=== PATIENT | male | born 1960 | race Caucasian/White ===

== ENCOUNTER 2017-01-29 12:08 | Emergency (ER) | payer BC, OTHER ==
[~2017-01-29] VITALS: Ht 177.8 cm; Wt 105.0 kg
[2017-01-29 12:15] VITALS: BP 133/88; PULSE 101; RESP 16; TEMP 98.1; O2SAT 99
--- NOTE | 2017-01-29 12:38 | PD ---
HPI Chief Complaint: General Weakness Time Seen by Provider: 12:26 Travel History International Travel<30 days: No Contact w/Intl Traveler<30days: No Traveled to known affect area: No History of Present Illness HPI This 56-year-old male is complaining of feeling lightheaded. He had a colonoscopy on Sunday he had multiple polyps removed. He did well since the procedure. This morning he started having some blood per rectum. His fairly persistent for a while. It seems to be slowing down. He started to feel little bit lightheaded when he stood up. She has no history of anemia. He does have a history of hypertension. He was nauseated yesterday PFSH Past Medical History Chemotherapy: No Social History Tobacco Use: No Allergies-Medications (Allergen,Severity, Reaction): Coded Allergies: Sulfa (Sulfonamide Antibiotics) (Verified Allergy, Unknown, 01/29/17) Reported Meds & Prescriptions Reported Meds & Active Scripts Active Review of Systems General / Constitutional: No: Fever, Chills Eyes: No: Diploplia, Blurred Vision HENT: Positive: Lightheadedness, No: Headaches, Vertigo Cardiovascular: No: Chest Pain or Discomfort, Palpitations Respiratory: No: Cough, Shortness of Breath Gastrointestinal: Positive: Nausea, Hematochezia Genitourinary: No: Urgency, Frequency Musculoskeletal: No: Myalgias, Arthralgias Skin: No Rash, No Itching Neurologic: Positive: Weakness Physical Exam Narrative GENERAL: Well-developed male SKIN: Focused skin assessment warm/dry. HEAD: Atraumatic. Normocephalic. EYES: Pupils equal and round. No scleral icterus. No injection or drainage. ENT: No nasal bleeding or discharge. Mucous membranes pink and moist. NECK: Trachea midline. No JVD. CARDIOVASCULAR: Regular rate and rhythm. No murmur appreciated. RESPIRATORY: No accessory muscle use. Clear to auscultation. Breath sounds equal bilaterally. GASTROINTESTINAL: Abdomen soft, non-tender, nondistended. Hepatic and splenic margins not palpable. MUSCULOSKELETAL: No obvious deformities. No clubbing. No cyanosis. No edema. NEUROLOGICAL: Awake and alert. No obvious cranial nerve deficits. Motor grossly within normal limits. Normal speech. PSYCHIATRIC: Appropriate mood and affect; insight and judgment normal. Data Data Last Documented VS Vital Signs Date Time Temp Pulse Resp B/P (MAP) Pulse Ox O2 Delivery O2 Flow Rate FiO2 01/29/17 13:45 72 17 128/81 (97) 85 17 122/84 (97) 89 17 129/79 (96) 01/29/17 12:50 Room Air 01/29/17 12:15 98.1 99 Orders Orders Complete Blood Count With Diff (01/29/17 12:32) Basic Metabolic Panel (Bmp) (01/29/17 12:32) Prothrombin Time / Inr (Pt) (01/29/17 12:32) Act Partial Throm Time (Ptt) (01/29/17 12:32) Orthostatic Vital Signs (01/29/17 12:32) Type And Screen (01/29/17 12:32) Sodium Chlor 0.9% 1000 Ml Inj (Ns 1000 M (01/29/17 12:45) Labs Laboratory Tests Test 01/29/17 12:50 White Blood Count 11.6 TH/MM3 Red Blood Count 3.69 MIL/MM3 Hemoglobin 11.8 GM/DL Hematocrit 34.9 % Mean Corpuscular Volume 94.6 FL Mean Corpuscular Hemoglobin 32.0 PG Mean Corpuscular Hemoglobin Concent 33.8 % Red Cell Distribution Width 12.0 % Platelet Count 237 TH/MM3 Mean Platelet Volume 8.8 FL Neutrophils (%) (Auto) 66.7 % Lymphocytes (%) (Auto) 19.0 % Monocytes (%) (Auto) 9.8 % Eosinophils (%) (Auto) 3.6 % Basophils (%) (Auto) 0.9 % Neutrophils # (Auto) 7.8 TH/MM3 Lymphocytes # (Auto) 2.2 TH/MM3 Monocytes # (Auto) 1.1 TH/MM3 Eosinophils # (Auto) 0.4 TH/MM3 Basophils # (Auto) 0.1 TH/MM3 CBC Comment DIFF FINAL Differential Comment Prothrombin Time 11.3 SEC Prothromb Time International Ratio 1.0 RATIO Activated Partial Thromboplast Time 22.7 SEC Blood Urea Nitrogen 11 MG/DL Creatinine 0.70 MG/DL Random Glucose 170 MG/DL Calcium Level 8.2 MG/DL Sodium Level 137 MEQ/L Potassium Level 4.3 MEQ/L Chloride Level 103 MEQ/L Carbon Dioxide Level 26.5 MEQ/L Anion Gap 8 MEQ/L Estimat Glomerular Filtration Rate 116 ML/MIN MDM Medical Decision Making Medical Screen Exam Complete: Yes Emergency Medical Condition: Yes Medical Record Reviewed: Yes Differential Diagnosis Differential includes bleeding from polyp excision, anemia Narrative Course Hemoglobin now is 11.6. Patient has been given some fluids. His orthostatic vital signs are negative. He is stable for discharge. I have cautioned him that if the bleeding continues he may need to come back for reevaluation. Diagnosis Primary Impression: bleeding secondary to polyp excision Additional Instructions: Return if weakness, dizziness, increasing bleeding Disposition: 01 DISCHARGE HOME Condition: Stable Stephen Ferris MD Jan 29, 2017 12:38
[2017-01-29] MEDS ORDERED: SODIUM CHLOR 0.9% 1000 ML INJ 1,000 ML IV ONE (12:45)
[2017-01-29 12:57] LABS: AUTOMATED NEUTROPHIL # 7.8 TH/MM3 (1.8-7.7); BASOPHIL # 0.1 TH/MM3 (0-0.2); BASOPHIL % 0.9 % (0.0-2.0); EOSINOPHIL # 0.4 TH/MM3 (0-0.4); EOSINOPHIL % 3.6 % (0.0-4.0); HEMATOCRIT 34.9 % (39.0-51.0); HEMO FLAGS DIFF FINAL; LYMPHOCYTE # 2.2 TH/MM3 (1.0-4.8); MEAN CELL VOLUME 94.6 FL (80.0-100.0); MEAN CORPUSCULAR HGB CONC 33.8 % (32.0-36.0); MONO % 9.8 % (0.0-8.0); NEUT % 66.7 % (16.0-70.0); PLATELET COUNT 237 TH/MM3 (150-450); RED BLOOD COUNT 3.69 MIL/MM3 (4.50-5.90); WHITE BLOOD COUNT 11.6 TH/MM3 (4.0-11.0)
[2017-01-29 13:13] LABS: APTT (PATIENT) 22.7 SEC (24.3-30.1); BICARBONATE 26.5 MEQ/L (21.0-32.0); PROTHROMBIN TIME - PATIENT 11.3 SEC (9.8-11.6)
[2017-01-29 13:27] LABS: POTASSIUM 4.3 MEQ/L (3.5-5.1)
[2017-01-29 13:45] VITALS: BP_SYST 122; BP_SYST 128; BP_SYST 129; BP_DIAS 79; BP_DIAS 81; BP_DIAS 84; PULSE 72; RESP 17; O2SAT 99
[2017-01-29 14:56] VITALS: BP 135/75
[2017-01-29] MEDS ORDERED: ATEN50TA7 PO (20:43)
[2017-01-29] MEDS ORDERED: LOSA100T PO (20:43)
[2017-01-29] MEDS ORDERED: METF500T PO (20:43)
[2017-01-29] MEDS ORDERED: AMLO5TAB2 PO (20:44)
== END 2017-01-29 14:58 | disposition home or self-care (01) ==
LOC: PHED 12:08
DX: K91.840 Postprocedural hemorrhage of a digestive system organ or structure following a digestive system procedure (principal); K62.5 Hemorrhage of anus and rectum; R42 Dizziness and giddiness; R11.0 Nausea; I10 Essential (primary) hypertension; Z98.890 Other specified postprocedural states
CPT/HCPCS: 80048; 85025; 85610; 85730; 86850; 86900; 86901; 96360; 99284; J7030

== ENCOUNTER 2017-01-29 20:30 | Inpatient (IN) | payer BC ==
[2017-01-29] VITALS (10 sets, daily range): BP systolic 105–155; BP diastolic 63–95; PULSE 90–109; RESP 15–20; TEMP 97.1–97.7; O2SAT 96–100
[~2017-01-29] VITALS: Ht 177.8 cm; Wt 108.6 kg
[2017-01-29] MEDS ORDERED: ONDANSETRON HCL 4 MG/2 ML VIAL ONE (20:37)
[2017-01-29] MEDS ORDERED: ATEN50TA7 PO (20:43)
[2017-01-29] MEDS ORDERED: LOSA100T PO (20:43)
[2017-01-29] MEDS ORDERED: METF500T PO (20:43)
[2017-01-29] MEDS ORDERED: AMLO5TAB2 PO (20:44)
[2017-01-29] MEDS ORDERED: SODIUM CHLOR 0.9% 1000 ML INJ 1,000 ML IV SCH (20:46)
[2017-01-29] MEDS ORDERED: PANTOPRAZOLE INJ 80 MG in SODIUM CHLORIDE 0.9% INJ 35 ML IV ONE (20:46)
--- NOTE | 2017-01-29 20:59 | PD ---
HPI Chief Complaint: Bleeding Time Seen by Provider: 20:45 Travel History International Travel<30 days: No Contact w/Intl Traveler<30days: No Traveled to known affect area: No History of Present Illness HPI The patient is a 56 year old male who presents to the [facility] emergency department with a history of GI bleeding that began earlier today. He reports that he has had bright red blood per rectum that began this morning was occurring approximately every 30 minutes. He reports that he then in the morning began to have lightheaded sensation. The patient reports that his recent history is complicated by having his first colonoscopy on Sunday by . At that time he had multiple polyps removed. The patient reports that he went to the [facility] emergency department earlier today after being told by the GI doctor's nurse to go there. The patient at that time was given IV fluids and initial blood work revealed a hemoglobin of 11.8. He was offered admission for observation and at that time preferred to go home. The patient reports that since going home every time he sits up he gets lightheaded. The patient has passed out and has an abrasion next to the left eye on the left moravian. He denies having any chest pain, chest pressure, or shortness of breath. The patient on arrival is noted to be pale. The patient was brought in by ambulance services and was noted to be tachycardic, however he was not hypotensive. His initial blood pressure on their arrival was 120/81, pulse 131. The patient had IV access obtained prior to arrival was given a liter of normal saline IV fluids. The patient has developed nausea and had one episode of vomiting on arrival to this facility. No hematemesis. He reports that his bloody stools have decreased to approximately once every 2 hours. On review of systems otherwise, the patient denies having any known recent fevers, cough or congestion, neck pain, urinary symptoms, or focal neurologic symptoms. The patient reports having some generalized abdominal discomfort down in bilateral lower quadrants of the abdomen. He reports having low back pain, however he reports that this is chronic. [facility] Past Medical History Narrative Medical The patient's past medical history is significant for having colon polyps status post resection on Sunday of this past week, history of prostate cancer , history of hypertension, diabetes mellitus. Asthma: Yes Cancer: Yes (prostate) Chemotherapy: No Diabetes: Yes Patient Takes Glucophage: Yes Diminished Hearing: No Hypertension: Yes Past Surgical History Narrative Surgical The patient's past surgical history is significant for prostatectomy Genitourinary Surgery: Yes (prostectomy ) Other Surgery: Yes (colonoscopy, 17 polyps removed on Sun) Social History Alcohol Use: Yes (daily) Tobacco Use: No Substance Use: No Allergies-Medications (Allergen,Severity, Reaction): Coded Allergies: Sulfa (Sulfonamide Antibiotics) (Verified Allergy, Unknown, 01/29/17) Reported Meds & Prescriptions Reported Meds & Active Scripts Active Reported Amlodipine (Amlodipine Besylate) 5 Mg Tab 5 Mg PO DAILY Metformin (Metformin HCl) 500 Mg Tab 500 Mg PO BIDPC Losartan (Losartan Potassium) 100 Mg Tab 100 Mg PO DAILY Atenolol-Chlorthalidone 50-25 Mg Tab 1 Tab PO DAILY Review of Systems Except as stated in HPI: all other systems reviewed are Neg General / Constitutional: No: Fever Eyes: No: Visual changes HENT: Positive: Lightheadedness, No: Headaches Cardiovascular: No: Chest Pain or Discomfort, Dyspnea on exertion Respiratory: No: Shortness of Breath Gastrointestinal: Positive: Nausea, Vomiting, Diarrhea, Abdominal Pain, Hematochezia, Changes in Bowel Habits, No: Hematemesis, Indigestion, Loss of Appetite Genitourinary: No: Dysuria Musculoskeletal: No: Pain Skin: No Rash Neurologic: Positive: Weakness (generalized weakness), Dizziness, Syncope, No: Focal Abnormalities, Change in Mentation, Slurred Speech, Sensory Disturbance Psychiatric: No: Depression Endocrine: No: Polydipsia Hematologic/Lymphatic: No: Easy Bruising Physical Exam Narrative General: The patient is a well-developed well-nourished male, pale appearing on arrival, diaphoretic. Head and Neck exam: Head is normocephalic atraumatic. Eyes: EOMI, pupils are equal round and reactive to light. Nose: Midline septum with pink mucous membranes Mouth: Dentition unremarkable. Moist mucus membranes. Posterior oropharynx is not erythematous. No tonsillar hypertrophy. Uvula midline. Airway patent. Neck: No palpable lymphadenopathy. No nuchal rigidity. No thyromegaly. Cardiovascular: Sinus tachycardia in the low 100s without murmurs, gallops, or rubs. No pulse deficit to the extremities on simultaneous auscultation and palpation of his radial artery. Lungs: Clear to auscultation bilaterally. No wheezes, rhonchi, or rales. Abdomen: Soft, with discomfort on deep palpation of bilateral lower quadrants of the abdomen, no other tenderness on palpation of the other quadrants. No guarding, rebound, or rigidity. Normal bowel sounds are audible. No tenderness on palpation of McBurney's point. Negative Carroll's sign. Extremities: No clubbing, cyanosis, or edema. 2+ pulses in all 4 extremities. No calf tenderness on palpation. Back: No costovertebral angle tenderness to palpation. Neurologic Exam: Grossly nonfocal. Skin Exam: No rash noted. Intact skin that is diaphoretic, warm to touch. Skin is noted to be pale. Data Data Last Documented VS Vital Signs Date Time Temp Pulse Resp B/P (MAP) Pulse Ox O2 Delivery O2 Flow Rate FiO2 01/29/17 21:33 98 Nasal Cannula 2.00 01/29/17 21:30 96 18 139/75 (96) Orders Orders Ondansetron Inj (Zofran Inj) (01/29/17 20:37) Complete Blood Count With Diff (01/29/17 20:46) Comprehensive Metabolic Panel (01/29/17 20:46) Lipase (01/29/17 20:46) Prothrombin Time / Inr (Pt) (01/29/17 20:46) Urinalysis - C+S If Indicated (01/29/17 20:46) Red Blood Cells (Rbc) (01/29/17 20:46) Blood Product Administration (01/29/17 20:46) Ecg Monitoring (01/29/17 20:46) Iv Access Insert/Monitor (01/29/17 20:46) Oximetry (01/29/17 20:46) Ondansetron Inj (Zofran Inj) (01/29/17 21:00) Sodium Chlor 0.9% 1000 Ml Inj (Ns 1000 M (01/29/17 20:46) Sodium Chloride 0.9% Flush (Ns Flush) (01/29/17 21:00) Sodium Chloride 0.9... W/Pantoprazole In (01/29/17 20:46) Sodium Chloride 0.9... W/Pantoprazole In (01/29/17 20:46) Gi Bleeding Scan (01/29/17 ) Type And Screen (01/29/17 20:40) Electrocardiogram (01/29/17 20:40) Admit Order (Ed Use Only) (01/29/17 21:45) Consult Gastroenterology (01/29/17 ) Labs Laboratory Tests Test 01/29/17 20:40 White Blood Count 12.9 TH/MM3 Red Blood Count 2.33 MIL/MM3 Hemoglobin 7.8 GM/DL Hematocrit 22.8 % Mean Corpuscular Volume 97.9 FL Mean Corpuscular Hemoglobin 33.2 PG Mean Corpuscular Hemoglobin Concent 34.0 % Red Cell Distribution Width 12.8 % Platelet Count 206 TH/MM3 Mean Platelet Volume 9.8 FL Neutrophils (%) (Auto) 79.4 % Lymphocytes (%) (Auto) 12.2 % Monocytes (%) (Auto) 7.9 % Eosinophils (%) (Auto) 0.1 % Basophils (%) (Auto) 0.4 % Neutrophils # (Auto) 10.2 TH/MM3 Lymphocytes # (Auto) 1.6 TH/MM3 Monocytes # (Auto) 1.0 TH/MM3 Eosinophils # (Auto) 0.0 TH/MM3 Basophils # (Auto) 0.0 TH/MM3 CBC Comment DIFF FINAL Differential Comment Prothrombin Time 11.4 SEC Prothromb Time International Ratio 1.1 RATIO Blood Urea Nitrogen 13 MG/DL Creatinine 0.88 MG/DL Random Glucose 237 MG/DL Total Protein 5.1 GM/DL Albumin 2.6 GM/DL Calcium Level 7.0 MG/DL Alkaline Phosphatase 22 U/L Aspartate Amino Transf (AST/SGOT) 9 U/L Alanine Aminotransferase (ALT/SGPT) 20 U/L Total Bilirubin 0.2 MG/DL Sodium Level 139 MEQ/L Potassium Level 3.8 MEQ/L Chloride Level 107 MEQ/L Carbon Dioxide Level 22.3 MEQ/L Anion Gap 10 MEQ/L Estimat Glomerular Filtration Rate 89 ML/MIN Protein Corrected Calcium 8.1 MG/DL Lipase 58 U/L MDM Medical Decision Making Medical Screen Exam Complete: Yes Emergency Medical Condition: Yes Medical Record Reviewed: Yes Interpretation(s) Last Impressions GI Bleed Scan Nuclear Medicine 01/29/17 0000 Signed Impressions: Service Date/Time: Sunday, January 29, 2017 22:49 - CONCLUSION: Evidence of active GI bleeding in the distal colon. Gabino Peter MD Differential Diagnosis Symptomatic anemia from GI bleeding, versus vasovagal syncope, versus orthostasis Narrative Course During the course of the patients emergency department visit, the patients history, examination, and differential diagnosis were reviewed with the patient. The patient was placed on a multiple resaw operator with oximetry and frequent blood pressure monitoring. The patient had IV access obtained and blood work sent for analysis. The patient will have an ECG done on arrival. The patient' s ECG reveals a sinus tachycardia rate of 101, no acute ST segment elevation, QRS duration is 77 ms, QTC 424 ms. the patient was typed and screened for blood administration. 4 units of packed red blood cells were immediately placed on hold for the patient. A call was immediately placed out to the GI specialist that performed the colonoscopy, . I spoke to who is covering for the other physician. He recommended a bleeding scan at the patient continued to have rectal bleeding, possible intervention through IR if necessary. He agreed that GI would see the patient in consultation in the morning. The patient was initially provided normal saline IV fluids, Protonix 80 mg IV, Protonix 80 mg IV per hour. The patients laboratory studies were reviewed and remarkable for a white count 12.9, hemoglobin 7.8, platelets 206 with 79.4 neutrophils. TSH Red blood cells were ordered to be administered immediately. CMP is remarkable for glucose of 237, calcium 7. Calcium gluconate 1 g IV was administered. AST 9, alkaline phosphatase 22, total protein 5.1, albumin 2.6, lipase 58, INR 1.1, PT 11.4 The patient's case is discussed with the gas cutting machine operator, Dr. Ramírez who did agree to admit the patient to the intensive care unit. The patients results were discussed with the patient, including the plan of care. I explained that further testing and/ or monitoring is indicated based on the patients history, examination, and/ or laboratory findings. Therefore, I recommended admission for additional evaluation. The patient expressed understanding and was agreeable with this plan. The patient was admitted to the hospital in critical condition and sent to a bed under the care of the gas cutting machine operator service. Critical Care Narrative Aggregate critical care time was 41 minutes. Time to perform other separately billable procedures was not included in the critical care time. My time did not include minutes spent treating any other patients simultaneously or on activities that did not directly contribute to the patient's treatment. The services I provided to this patient were to treat and/or prevent clinically significant deterioration that could result in: Cardiovascular collapse related to hemorrhagic shock, versus fluid overload related to resuscitation, versus respiratory failure I provided critical care services requiring my management, as noted below: Chart data review, documentation time, medication orders and management, vital sign assessments/reviewing monitor data, ordering and reviewing lab tests, ordering and interpreting/reviewing x-rays and diagnostic studies, care of the patient and discussion of the patient with the admitting physicians. Physician Communication Physician Communication The patient's case including history, pertinent physical examination findings, and laboratory studies were discussed with Dr. Wakefield at 21:15. He recommended that the patient undergo a bleeding scan if he continues to have bright red blood per rectum. He agreed with the plan for the patient to be admitted to the intensive care unit for close monitoring and receive blood. He will see the patient in consultation in the morning. The patient's case including history, pertinent physical examination findings, and laboratory studies were discussed with Dr. Ramírez. It was agreed that the patient would be admitted to the gas cutting machine operator service. Diagnosis Primary Impression: GI bleed Qualified Codes: K92.2 - Gastrointestinal hemorrhage, unspecified Additional Impressions: Symptomatic anemia Hemorrhagic shock Admitting Information Admitting Physician Requests: Admit Roberta Tucker MD Jan 29, 2017 20:59
[2017-01-29] MEDS ORDERED: SODIUM CHLORIDE 0.9% FLUSH 10 ML FLUSH IVF PRN (21:00)
[2017-01-29] MEDS ORDERED: ONDANSETRON HCL 4 MG/2 ML VIAL IVP ONE (21:00)
[2017-01-29] MEDS: PANTOPRAZOLE INJ 80 MG in SODIUM CHLORIDE 0.9% INJ 100 ML IV SCH (21:22)
[2017-01-29 21:23] LABS: AUTOMATED NEUTROPHIL # 10.2 TH/MM3 (1.8-7.7); BASOPHIL % 0.4 % (0.0-2.0); EOSINOPHIL % 0.1 % (0.0-4.0); HEMATOCRIT 22.8 % (39.0-51.0); HEMO FLAGS DIFF FINAL; LYMPH % 12.2 % (9.0-44.0); LYMPHOCYTE # 1.6 TH/MM3 (1.0-4.8); MEAN CELL VOLUME 97.9 FL (80.0-100.0); MEAN CORPUSCULAR HEMOGLOBIN 33.2 PG (27.0-34.0); MONO % 7.9 % (0.0-8.0); NEUT % 79.4 % (16.0-70.0); PLATELET COUNT 206 TH/MM3 (150-450); RED BLOOD COUNT 2.33 MIL/MM3 (4.50-5.90); RED CELL DISTRIBUTION WIDTH 12.8 % (11.6-17.2); WHITE BLOOD COUNT 12.9 TH/MM3 (4.0-11.0)
[2017-01-29 21:50] LABS: BICARBONATE 22.3 MEQ/L (21.0-32.0); CALCIUM-PROTEIN CORRECTED 8.1 MG/DL (8.5-10.1); POTASSIUM 3.8 MEQ/L (3.5-5.1); TOTAL BILIRUBIN ADULT 0.2 MG/DL (0.2-1.0)
[2017-01-29 21:52] LABS: INTERNATIONAL NORMALIZED RATIO 1.1 RATIO; PROTHROMBIN TIME - PATIENT 11.4 SEC (9.8-11.6)
[2017-01-29] MEDS ORDERED: SODIUM CHLORIDE 0.9% FLUSH 10 ML FLUSH IV FLUSH PRN (22:45)
[2017-01-29] MEDS ORDERED: ACETAMINOPHEN 325 MG TAB PO PRN (22:45)
[2017-01-29] MEDS ORDERED: MAGNESIUM HYDROXIDE SUSP 30 ML CUP PO PRN (22:45)
[2017-01-29] MEDS ORDERED: CHLORHEXIDINE GLUCONATE 2 % 1 PACK (2 CLOTHS) TOP PRN (22:45)
[2017-01-29] MEDS ORDERED: RESP: ALBUTEROL 2.5 MG/IPRATROPIUM 0.5 MG NEB (PRN) INH (22:45)
[2017-01-29] MEDS ORDERED: ZOLPIDEM TARTRATE 5 MG TAB PO PRN (22:45)
[2017-01-29] MEDS ORDERED: MORPHINE SULFATE 4 MG/ML INJ IV PUSH PRN (22:45)
[2017-01-29] MEDS ORDERED: DEXTROSE 50% IN WATER 50 ML VIAL(D50) IV PUSH PRN (22:45)
[2017-01-29] MEDS ORDERED: SENNOSIDES 8.6 MG TAB PO PRN (22:45)
[2017-01-29] MEDS ORDERED: BISACODYL 10 MG SUPP RECTAL PRN (22:45)
[2017-01-29] MEDS ORDERED: LACTULOSE SYRUP 20 GM/30 ML CUP PO PRN (22:45)
[2017-01-29] MEDS ORDERED: MISCELLANEOUS NURSING INFORMATION XX SCH (22:45)
[2017-01-29] MEDS ORDERED: GLUCAGON 1 MG/ML VIAL OTHER PRN (22:45)
[2017-01-29] MEDS: PANTOPRAZOLE SODIUM 40 MG VIAL IV PUSH SCH (23:00)
[2017-01-29] MEDS ORDERED: CALCIUM GLUCONATE INJ 1 GM in SODIUM CHLORIDE 0.9% INJ 100 ML IV ONE (23:00)
[2017-01-29] MEDS: SODIUM CHLOR 0.9% 1000 ML INJ 1,000 ML IV SCH (23:08)
--- NOTE | 2017-01-29 23:16 | HHI.HP ---
HPI Service Critical Care Medicine Primary Care Physician Osito Fung MD Admission Diagnosis GI Bleed Diagnosis: Travel History International Travel<30 Days: No Contact w/Intl Traveler <30 Da: No Traveled to Known Affected Are: No History of Present Illness 56 year old male presents to the [facility] emergency department with a history of GI bleeding that began earlier today. He has had bright red blood per rectum that began this morning was occurring approximately every 30 minutes. He also began to have lightheaded sensation. He has had his first colonoscopy on Sunday by and he had multiple polyps removed. He went to the [facility] emergency department earlier today after being told by the GI doctor's nurse to do. He was given IV fluids and initial blood work revealed a hemoglobin of 11.8. He was offered admission for observation and at that time preferred to go home. Since then every time he sits up he gets lightheaded. He also has passed out and has an abrasion next to the left eye on the left denominational. He denies having any chest pain, chest pressure, or shortness of breath. The patient was brought in by ambulance services and in the emergency department was noted to be tachycardic, however he was not hypotensive. His initial blood pressure on their arrival was 120/81, pulse 131. The patient had IV access obtained prior to arrival was given a liter of normal saline IV fluids. He reports that his bloody stools have decreased to approximately once every 2 hours. The GI services were notified by ED attending with recommendations of nuclear medicine bleeding scan which shows active bleeding from the distal colon. IR physician economic development coordinator was contacted, case discussed and scheduled for IR intervention at 7:30 AM . Review of Systems Constitutional: COMPLAINS OF: Diaphoretic episodes, Fatigue, Dizziness, DENIES : Fever, Weight gain, Weight loss, Chills, Change in appetite, Night Sweats Eyes: COMPLAINS OF: Blurred vision, DENIES: Diplopia, Eye inflammation, Eye pain, Vision loss, Photosensitivity, Double Vision Ears, nose, mouth, throat: DENIES: Tinnitus, Hearing loss, Vertigo, Nasal discharge, Oral lesions, Throat pain, Hoarseness, Ear Pain, Running Nose, Epistaxis, Sinus Pain, Toothache, Odynophagia Respiratory: DENIES: Apneas, Cough, Snoring, Wheezing, Hemoptysis, Sputum production, Shortness of breath Cardiovascular: DENIES: Chest pain, Palpitations, Syncope, Dyspnea on Exertion , PND, Lower Extremity Edema, Orthopnea, Claudication Gastrointestinal: COMPLAINS OF: Bloody stools, Nausea, DENIES: Abdominal pain, Black stools, Constipation, Diarrhea, Vomiting, Difficulty Swallowing, Anorexia Genitourinary: DENIES: Sexual dysfunction, Urinary frequency, Urinary incontinence, Urgency, Hematuria, Dysuria, Nocturia, Penile Discharge, Testicular Pain, Testicular Swelling Musculoskeletal: DENIES: Joint pain, Muscle aches, Stiffness, Joint Swelling, Back pain, Neck pain Integumentary: DENIES: Abnormal pigmentation, Nail changes, Pruritus, Rash Hematologic/lymphatic: DENIES: Bruising, Lymphadenopathy Immunologic/allergic: DENIES: Eczema, Urticaria Neurologic: COMPLAINS OF: Poor Balance, DENIES: Abnormal gait, Headache, Localized weakness, Paresthesias, Seizures, Speech Problems, Tremor Psychiatric: DENIES: Anxiety, Confusion, Mood changes, Depression, Hallucinations, Agitation, Suicidal Ideation, Homicidal Ideation, Delusions Past Family Social History Allergies: Coded Allergies: Sulfa (Sulfonamide Antibiotics) (Verified Allergy, Unknown, 01/29/17) Past Medical History Asthma: Yes Cancer: Yes (prostate) Diabetes: Yes Hypertension: Yes Past Surgical History Genitourinary Surgery: Yes (prostectomy ) Other Surgery: Yes (colonoscopy, 17 polyps removed on Sun) Reported Medications Reported Meds & Active Scripts Active Reported Amlodipine (Amlodipine Besylate) 5 Mg Tab 5 Mg PO DAILY Metformin (Metformin HCl) 500 Mg Tab 500 Mg PO BIDPC Losartan (Losartan Potassium) 100 Mg Tab 100 Mg PO DAILY Atenolol-Chlorthalidone 50-25 Mg Tab 1 Tab PO DAILY Active Ordered Medications Current Medications Medications (Trade) Dose Ordered Sig/Ira Route PRN Reason Start Time Stop Time Status Last Admin Dose Admin Sodium Chloride 1,000 ml @ 125 mls/hr Q8H IV 01/29/17 20:46 01/30/17 04:45 01/29/17 21:21 Sodium Chloride (NS Flush) 2 ml UNSCH PRN IVF FLUSH AFTER USING IV ACCESS 01/29/17 21:00 Pantoprazole Sodium 80 mg/ Sodium Chloride 100 ml @ 10 mls/hr Q10H IV 01/29/17 20:46 01/29/17 21:22 Sodium Chloride 1,000 ml @ 84 mls/hr [id number] IV 01/29/17 22:33 01/29/17 23:08 Sodium Chloride (NS Flush) 2 ml UNSCH PRN IV FLUSH FLUSH AFTER USING IV ACCESS 01/29/17 22:45 Sodium Chloride (NS Flush) 2 ml BID IV FLUSH 01/30/17 09:00 Acetaminophen (Tylenol) 650 mg Q6H PRN PO PAIN 1-5 AND/OR FEVER >101F 01/29/17 22:45 Morphine Sulfate (Morphine Inj) 2 mg Q2H PRN IV PUSH PAIN SCALE 6 TO 10 01/29/17 22:45 Pantoprazole Sodium (Protonix Inj) 40 mg Q12H IV PUSH 01/29/17 23:00 Ondansetron HCl (Zofran Inj) 4 mg Q6H PRN IV PUSH NAUSEA OR VOMITING 01/29/17 22:45 Zolpidem Tartrate (Ambien) 5 mg HS PRN PO INSOMNIA 01/29/17 22:45 Albuterol/ Ipratropium (Duoneb Neb) 1 ampule Q2HR NEB PRN INH WHEEZING 01/29/17 22:45 Miscellaneous Information 1 Q361D XX 01/29/17 22:45 Chlorhexidine Gluconate (Chlorhexidine 2% Cloth) 3 pack Taper DAILY@04 TOP 01/30/17 04:00 01/26/18 03:59 Chlorhexidine Gluconate (Chlorhexidine 2% Cloth) 3 pack UNSCH PRN TOP HYGIENIC CARE 01/29/17 22:45 Senna/Docusate Sodium (Georgiana-Colace) 1 tab BID PO 01/30/17 09:00 Magnesium Hydroxide (Milk Of Magnesia Liq) 30 ml Q12H PRN PO Mild constipation 01/29/17 22:45 Sennosides (Senokot) 17.2 mg Q12H PRN PO Moderate constipation 01/29/17 22:45 Bisacodyl (Dulcolax Supp) 10 mg DAILY PRN RECTAL SEVERE CONSITIPATION 01/29/17 22:45 Lactulose (Lactulose Liq) 30 ml DAILY PRN PO SEVERE CONSITIPATION 01/29/17 22:45 Dextrose (D50w (Vial) Inj) 50 ml UNSCH PRN IV PUSH HYPOGLYCEMIA-SEE COMMENTS 01/29/17 22:45 Glucagon (Glucagon Inj) 1 mg UNSCH PRN OTHER HYPOGLYCEMIA-SEE COMMENTS 01/29/17 22:45 Insulin Aspart (NovoLOG SUPPLEMENTAL SCALE) 1 ACHS SLIDING SCALE SQ 01/30/17 08:00 Family History No family history of early coronary artery disease Social History Alcohol Use: Yes (daily) Tobacco Use: No Substance Use: No Physical Exam Vital Signs Vital Signs Date Time Temp Pulse Resp B/P (MAP) Pulse Ox O2 Delivery O2 Flow Rate FiO2 01/29/17 23:09 98 18 147/78 (101) 98 Nasal Cannula 2.00 01/29/17 23:00 97.2 93 15 143/82 99 01/29/17 22:54 97.7 96 16 105/63 97 01/29/17 22:40 97.1 109 16 117/74 98 01/29/17 21:33 98 Nasal Cannula 2.00 01/29/17 21:30 96 18 139/75 (96) 96 Room Air 01/29/17 21:00 102 19 139/74 (95) 100 Nasal Cannula 2.00 01/29/17 20:36 108 155/95 (115) 01/29/17 20:35 108 20 146/95 (112) 100 Nasal Cannula 2.00 Physical Exam GENERAL: Well-nourished, well-developed patient. SKIN: Warm and dry. HEAD: Normocephalic. EYES: No scleral icterus. No injection or drainage. NECK: Supple, trachea midline. No JVD or lymphadenopathy. CARDIOVASCULAR: Regular rate and rhythm without murmurs, gallops, or rubs. RESPIRATORY: Breath sounds equal bilaterally. No accessory muscle use. GASTROINTESTINAL: Abdomen soft, non-tender, nondistended. MUSCULOSKELETAL: No cyanosis, or edema. BACK: Nontender without obvious deformity. NEURO EXAM: GCS: M 6 V5 E4 Mental Status: The patient is alert and oriented to person, place, and time with normal speech. Cranial Nerves: Visual acuity intact bilaterally. Visual key normal in all quadrants. Pupils are round, reactive to light. Extraocular movements are intact without ptosis. Hearing is normal bilaterally. Voice is normal. Tongue protrudes midline and moves symmetrically. Reflexes: Biceps, patellar, and Achilles are 2/4 bilaterally. No clonus. Laboratory Laboratory Tests Test 01/29/17 20:40 White Blood Count 12.9 Red Blood Count 2.33 Hemoglobin 7.8 Hematocrit 22.8 Mean Corpuscular Volume 97.9 Mean Corpuscular Hemoglobin 33.2 Mean Corpuscular Hemoglobin Concent 34.0 Red Cell Distribution Width 12.8 Platelet Count 206 Mean Platelet Volume 9.8 Neutrophils (%) (Auto) 79.4 Lymphocytes (%) (Auto) 12.2 Monocytes (%) (Auto) 7.9 Eosinophils (%) (Auto) 0.1 Basophils (%) (Auto) 0.4 Neutrophils # (Auto) 10.2 Lymphocytes # (Auto) 1.6 Monocytes # (Auto) 1.0 Eosinophils # (Auto) 0.0 Basophils # (Auto) 0.0 CBC Comment DIFF FINAL Differential Comment Prothrombin Time 11.4 Prothromb Time International Ratio 1.1 Blood Urea Nitrogen 13 Creatinine 0.88 Random Glucose 237 Total Protein 5.1 Albumin 2.6 Calcium Level 7.0 Alkaline Phosphatase 22 Aspartate Amino Transf (AST/SGOT) 9 Alanine Aminotransferase (ALT/SGPT) 20 Total Bilirubin 0.2 Sodium Level 139 Potassium Level 3.8 Chloride Level 107 Carbon Dioxide Level 22.3 Anion Gap 10 Estimat Glomerular Filtration Rate 89 Protein Corrected Calcium 8.1 Lipase 58 Result Diagram: 01/29/17203901/29/172039 Caprini VTE Risk Assessment Caprini VTE Risk Assessment: Mod/High Risk (score >= 2) Caprini Risk Assessment Model Point Value = 1 Point Value = 2 Point Value = 3 Point Value = 5 Age 41-60 Minor surgery BMI > 25 kg/m2 Swollen legs Varicose veins or History of unexplained or recurrent spontaneous Oral contraceptives or hormone replacement Sepsis (< 1 month) Serious lung disease, including pneumonia (< 1 month) Abnormal pulmonary function Acute myocardial infarction Congestive heart failure (< 1 month) History of inflammatory bowel disease Medical patient at bed rest Age 61-74 Arthroscopic surgery Major open surgery (> 45 min) Laparoscopic surgery (> 45 min) Malignancy Confined to bed (> 72 hours) Immobilizing plaster cast Central venous access Age >= 75 History of VTE Family history of VTE Factor V Leiden Prothrombin [id number] Lupus anticoagulant Anticardiolipin antibodies Elevated serum homocysteine Heparin-induced thrombocytopenia Other congenital or acquired thrombophilia Stroke (< 1 month) Elective arthroplasty Hip, pelvis, or leg fracture Acute spinal cord injury (< 1 month) Prophylaxis Regimen Total Risk Factor Score Risk Level Prophylaxis Regimen 0-1 Low Early ambulation 2 Moderate Order ONE of the following: *Sequential Compression Device (SCD) *Heparin 5000 units SQ BID 3-4 Higher Order ONE of the following medications: *Heparin 5000 units SQ TID *Enoxaparin/Lovenox 40 mg SQ daily (WT < 150 kg, CrCl > 30 mL/min) *Enoxaparin/Lovenox 30 mg SQ daily (WT < 150 kg, CrCl > 10-29 mL/min) *Enoxaparin/Lovenox 30 mg SQ BID (WT < 150 kg, CrCl > 30 mL/min) AND/OR *Sequential Compression Device (SCD) 5 or more Highest Order ONE of the following medications: *Heparin 5000 units SQ TID (Preferred with Epidurals) *Enoxaparin/Lovenox 40 mg SQ daily (WT < 150 kg, CrCl > 30 mL/min) *Enoxaparin/Lovenox 30 mg SQ daily (WT < 150 kg, CrCl > 10-29 mL/min) *Enoxaparin/Lovenox 30 mg SQ BID (WT < 150 kg, CrCl > 30 mL/min) AND *Sequential Compression Device (SCD) Assessment and Plan Assessment and Plan GI bleed - Active bleeding per nuclear medicine scan from distal: - IV Protonix - IR consultation - Gastroenterology consultation - Platelets above 200 - PT/INR within normal limits Anemia - Due to above - Transfuse to keep hemoglobin above 8 History of asthma - No exacerbation - DuoNeb's when necessary DVT GI prophylaxis - Teds SCDs - No pharmacological DVT prophylaxis due to active GI bleed - Protonix IV twice a day Critical Care: The total critical care time was 35 minutes. Time to perform other separately billable procedures was not included in the critical care time. Fahad Ramírez MD Jan 29, 2017 11:16 pm
[2017-01-30] VITALS (18 sets, daily range): BP systolic 111–155; BP diastolic 64–113; PULSE 72–140; RESP 14–24; TEMP 97–100.3; O2SAT 93–100
--- NOTE | 2017-01-30 01:45 | RADRPT ---
EXAM DATE/TIME: 01/29/2017 22:49 [facility] COMPARISON: No previous studies available for comparison. INDICATIONS : Blood in stool. DOSE: 20.2 mCi Tc99m Ultratag labeled red blood cells IV IMAGIN hrs MEDICAL HISTORY : Diabetes mellitus type 2. Hypertension. Carcinoma, prostate. SURGICAL HISTORY : Prostatectomy. ENCOUNTER: Initial ACUITY: 1 day PAIN SCALE: 2/10 LOCATION: Abdomen. TECHNIQUE: Following the modified in vitro labeling of autologous red cells, dynamic continuous images were acqu ired for the specified interval. FINDINGS: BIODISTRIBUTION: There is a very good labeling of red cells without significant uptake in the gastric wall. There is good delineation of the blood pool of the spleen and abdominal vessels. BLEEDING: Active GI bleeding is present in the distal colon. CONCLUSION: Evidence of active GI bleeding in the distal colon. Gabino Peter MD on January 30, 2017 at 1:41 Board Certified Radiologist. This report was verified electronically.
[2017-01-30 01:58] LABS: HEMATOCRIT 26.4 % (39.0-51.0); REVIEW FLAG FINAL
[2017-01-30] MEDS: ONDANSETRON HCL 4 MG/2 ML VIAL IV PUSH PRN ×2 (03:02→14:48)
[2017-01-30] MEDS: CHLORHEXIDINE GLUCONATE 2 % 1 PACK (2 CLOTHS) TOP SCH ×2 (04:00→21:07)
[2017-01-30 05:35] LABS: HEMATOCRIT 30.9 % (39.0-51.0); REVIEW FLAG FINAL
[2017-01-30 06:43] LABS: BICARBONATE 23.4 MEQ/L (21.0-32.0); CALCIUM-PROTEIN CORRECTED 7.8 MG/DL (8.5-10.1); MAGNESIUM 1.5 MG/DL (1.5-2.5)
[2017-01-30] MEDS: PANTOPRAZOLE INJ 80 MG in SODIUM CHLORIDE 0.9% INJ 100 ML IV SCH (06:46)
[2017-01-30 06:47] LABS: POTASSIUM 4.5 MEQ/L (3.5-5.1)
[2017-01-30] MEDS: INSULIN ASPART SUPPLEMENTAL SCALE SQ SCH ×4 (08:00→20:43)
[2017-01-30] MEDS ORDERED: HEPARIN SODIUM - IV 10,000 UNITS/10 ML VIAL ONE (08:15)
[2017-01-30] MEDS ORDERED: MIDAZOLAM HCL 2 MG/2 ML VIAL ONE (08:15)
[2017-01-30] MEDS ORDERED: VERAPAMIL HCL 5 MG/2 ML VIAL ONE (08:15)
[2017-01-30] MEDS: SODIUM CHLORIDE 0.9% FLUSH 10 ML FLUSH IV FLUSH SCH ×2 (08:50→20:44)
[2017-01-30] MEDS: DOCUSATE SODIUM 50 MG/SENNA 8.6 MG TAB PO SCH ×2 (08:50→20:43)
[2017-01-30] MEDS ORDERED: IOHEXOL 350 MG/ML 50 ML BTL (for RAD DIAG) OTHER ONE (10:20)
--- NOTE | 2017-01-30 10:33 | HHI.CCPN ---
Subjective Remarks/Hospital Course 56 year old male presents to the [facility] emergency department with a history of GI bleeding that began earlier today. He has had bright red blood per rectum that began this morning was occurring approximately every 30 minutes. He also began to have lightheaded sensation. He has had his first colonoscopy on Sunday by and he had multiple polyps removed. He went to the [place] emergency department earlier today after being told by the GI doctor's nurse to do. He was given IV fluids and initial blood work revealed a hemoglobin of 11.8. He was offered admission for observation and at that time preferred to go home. Since then every time he sits up he gets lightheaded. He also has passed out and has an abrasion next to the left eye on the left yarsanism. He denies having any chest pain, chest pressure, or shortness of breath. The patient was brought in by ambulance services and in the emergency department was noted to be tachycardic, however he was not hypotensive. His initial blood pressure on their arrival was 120/81, pulse 131. The patient had IV access obtained prior to arrival was given a liter of normal saline IV fluids. He reports that his bloody stools have decreased to approximately once every 2 hours. The GI services were notified by ED attending with recommendations of nuclear medicine bleeding scan which shows active bleeding from the distal colon. IR physician incident response coordinator was contacted, case discussed and scheduled for IR intervention at 7:30 AM . SUBJ 01/30: Patient was seen after abdominal angiography, official report is pending apparently they did not find a source of bleeding. Rectal bag in place with dark blood. Patient remains tachycardic at 130s. Systolic blood pressures in 120s. Repeat hemoglobin is pending at this time. GI planning on sigmoidoscopy afternoon or tomorrow a.m. Objective Vital Signs Date Time Temp Pulse Resp B/P (MAP) Pulse Ox O2 Delivery O2 Flow Rate FiO2 01/30/17 08:00 140 24 141/100 (114) 100 01/30/17 05:05 97.1 01/30/17 00:20 Nasal Cannula 2.00 Intake and Output 01/30/17 01/30/17 01/31/17 08:00 16:00 00:00 Intake Total 1767 ml 0 ml Balance 1767 ml 0 ml Result Diagram: 01/30/17 0524 01/30/17 0535 Objective Remarks GENERAL: Well-nourished, well-developed patient. Lying in bed anxious SKIN: Warm and dry. HEAD: Normocephalic. EYES: No scleral icterus. No injection or drainage. NECK: Supple, trachea midline. No JVD or lymphadenopathy. CARDIOVASCULAR: Regular rate and rhythm without murmurs, gallops, or rubs. RESPIRATORY: Breath sounds equal bilaterally. No accessory muscle use. GASTROINTESTINAL: Abdomen soft, non-tender, nondistended. Rectal bag dark blood MUSCULOSKELETAL: No cyanosis, or edema. BACK: Nontender without obvious deformity. NEURO EXAM: AOX 3. Normal motor strength. Sensation preserved Urinary Catheter: Yes Assessment to: Continue Vascular Central Line Catheter: Yes Assessment to: Continue A/P Assessment and Plan GI bleed - Active bleeding per nuclear medicine scan from distal colon - Abdominal angiogram today failed to identify bleeding source - GI following; plan for colonoscopy - IV Protonix - Platelets above 200, PT/INR within normal limits - Patient continues to remain tachycardic - Check hemoglobin now and transfuse as needed - We'll give 500 mL normal saline bolus now - Patient takes atenolol chlorthalidone at home. Resume if Hb stable as patient may be tachycardic from beta isaac withdrawal Anemia - Due to GIB - Transfuse to keep hemoglobin above 8 History of asthma - No exacerbation - DuoNeb's when necessary DVT GI prophylaxis - Teds SCDs - No pharmacological DVT prophylaxis due to active GI bleed - Protonix IV twice a day Critical Care: The total critical care time was 35 minutes. Time to perform other separately billable procedures was not included in the critical care time. Manoj Tobin MD Jan 30, 2017 10:33
[2017-01-30] MEDS: PANTOPRAZOLE SODIUM 40 MG VIAL IV PUSH SCH ×2 (10:46→23:41)
--- NOTE | 2017-01-30 10:47 | MB ---
cc: SHEMAR REDDY M.D., LOUIS M. MD MOUSSLY, SOUHIEL DATE OF CONSULTATION: 01/30/2017 DATE OF : 1960 HISTORY OF PRESENT ILLNESS The patient is a 56-year-old gentleman I was asked to see for further evaluation and management of hematochezia. He underwent colonoscopy about 7 days ago and multiple polyps were removed. Yesterday he presented to the [facility] with hematochezia but felt well enough to go home. He was re-admitted to [facility] last evening with significant hematochezia, lightheadedness and dizziness and was admitted. The bleeding continued. A bleeding scan overnight revealed active bleeding of the rectum or sigmoid region. Angiography (I was in the angio suite with the patient and the interventional radiologist.) revealed no active bleeding during this study. This suggests, at least for the time-being, that the bleeding has ceased. The patient feels cold and is shivering. He has had no pain. PAST MEDICAL HISTORY 1. Asthma. 2. Prostate cancer. 3. Diabetes. 4. Hypertension. PAST SURGICAL HISTORY 1. Prostatectomy. 2. Colonoscopy with 17 polyps having been removed last week. MEDICATIONS Medications on admission: 1. Amlodipine 5 mg daily. 2. Metformin 500 mg b.i.d. 3. Losartan 100 mg daily. 4. Atenolol/hydrochlorothiazide 50/25 mg daily. ALLERGIES SULFA. SOCIAL HISTORY Tobacco use: None. Alcohol use: Daily. REVIEW OF SYSTEMS No problems until this bleeding. He has had no recent headaches or difficulty breathing. No chest pains. No history of seizures or strokes. No dysphagia or odynophagia. No unexplained weight loss. No history of liver disease or pancreatic disease or thyroid disease. PHYSICAL EXAMINATION VITAL SIGNS: Weight 109 kg. Temperature 97.1, pulse 140, respiratory rate 24, blood pressure 141/100. Saturation 100% on room air. GENERAL: He is alert. He is oriented x3. HEENT: He is pale. He is anicteric. He has chattering teeth. LUNGS: Clear to auscultation. HEART: Tachycardia with no appreciable murmur or gallop at this time. ABDOMEN: Good bowel sounds. The abdomen is soft and nontender. No masses or hepatosplenomegaly noted. EXTREMITIES: No pedal edema. LABORATORY STUDIES Laboratory studies on admission yesterday: White count 12.9, hemoglobin 7.8 at 8:40 last evening, MCV 79.9, platelets 206. This morning by 5:24 after 4 units of packed red blood cells his hemoglobin was up to 10.6. Sodium this morning is 140, potassium 4.5, BUN 17, creatinine 0.83. Liver enzymes were all normal. Albumin low at 2.4. INR 1.1. RADIOLOGIC STUDIES As mentioned positive bleeding scan in the rectum or sigmoid colon with a normal angiogram just a few minutes ago. IMPRESSION Post-polypectomy bleed. PLAN/RECOMMENDATIONS At this point will follow his blood count, make sure he stays stable hemodynamically. Will consider sigmoidoscopy today or tomorrow to evaluate for bleeding site to see if it can be injected or cauterized or banded. We reviewed the procedure including potential risks of medication reaction, bleeding, perforation and a small chance of missing a lesion. Hemoglobin is to be followed serially. MD JUSTA Jackson/NADIYA /10:10 AM /10:27 AM
[2017-01-30] MEDS ORDERED: SODIUM CHLORID 0.9% 500 ML INJ 500 ML IV ONE (11:00)
[2017-01-30 11:27] LABS: AUTOMATED NEUTROPHIL # 12.8 TH/MM3 (1.8-7.7); BASOPHIL % 0.1 % (0.0-2.0); HEMATOCRIT 24.3 % (39.0-51.0); HEMO FLAGS DIFF FINAL; LYMPH % 10.1 % (9.0-44.0); LYMPHOCYTE # 1.6 TH/MM3 (1.0-4.8); MEAN CELL VOLUME 84.8 FL (80.0-100.0); MEAN CORPUSCULAR HEMOGLOBIN 28.8 PG (27.0-34.0); MONO % 7.7 % (0.0-8.0); NEUT % 82.1 % (16.0-70.0); PLATELET COUNT 139 TH/MM3 (150-450); RED BLOOD COUNT 2.87 MIL/MM3 (4.50-5.90); RED CELL DISTRIBUTION WIDTH 20.7 % (11.6-17.2); WHITE BLOOD COUNT 15.5 TH/MM3 (4.0-11.0)
[2017-01-30] MEDS: SODIUM CHLOR 0.9% 1000 ML INJ 1,000 ML IV SCH ×2 (11:33→20:44)
[2017-01-30] MEDS: ATENOLOL/CHLORTHALIDONE 50/25 TAB PO SCH (13:27)
--- NOTE | 2017-01-30 14:02 | RADRPT ---
EXAM DATE/TIME: 01/30/2017 08:12 [facility] COMPARISON: No previous studies available for comparison. INDICATIONS : History of recent polypectomy with severe lower GI hemorrhage and bleeding scan demonstrating distal colonic source. MEDICAL HISTORY : HTN, Diabetes, Colon polyps, Prostate cancer SURGICAL HISTORY : Prostatectomy, Colonoscopy ENCOUNTER: Subsequent ACUITY: 1 day PAIN SCORE: 0/10 FLUORO TIME: 20.3 minutes IMAGE SERIES: 7 ACCESS SITE: Left Radial artery SEDATION TIME: 60 minutes CONTRAST: 1.) 180 cc Omnipaque (iohexol) 350 MEDICATION(S): 1.) 0.5 mg midazolam (Versed) IV 2.) 25 mcg fentanyl (Sublimaze) IV DEVICE(S): 1.) Left radial artery [id number] Radial compression device PROCEDURE : 1. Ultrasound-guided puncture of the radial artery. 2. Conscious sedation with continuous EKG and Oximetry monitoring. 3. Selective catheter placement in the SMA was selected angiography 4. Selective catheter placement in June with selective angiography The risks, benefits and alternatives to the procedure were explained and verbal and written consent w as obtained. The site was prepped in sterile fashion. Full sterile technique was used, including cap, mask, steri le gloves and gown and a large sterile sheet. Hand hygiene and 2% chlorhexidine and/or betadine/alco hol prep was utilized per protocol for cutaneous antisepsis. Sterile gel and sterile probe cover wer e utilized for ultrasound guidance. The skin and subcutaneous tissues were infiltrated with local an esthetic solution. A Barbeau test was performed prior to preparing the patient for the procedure which demonstrated adeq uate collateral circulation. With ultrasound and fluoroscopic guidance the prescribed radial was punc tured and a 4 Croatian Slim vascular sheath was placed. A 4 Croatian portacatheter was than advanced into the abdominal aorta and eventually used to select the superior mesenteric artery. Angiography was pe rformed in multiple obliquities. Catheter was then repositioned into the KYUNG. This was challenging du e to very sharp origin angle and small caliber. Angiography was then performed in multiple obliquitie s. Catheter was then removed. Sheath was removed and hemostasis obtained with radial compression device. Conscious sedation was performed with the prescribed dosages and duration as above in the presence of an independent trained radiology nurse to assist in the monitoring of the patient. EKG and oximetry remained stable throughout the procedure. FINDINGS: There standard SMA anatomy. No evidence for contrast extravasation or vascular malformation or other focal abnormality. KYUNG is small in caliber but otherwise patent with no evidence for contrast extrava sation or vascular malformation or other focal abnormality. CONCLUSION: 1. No evidence for active hemorrhage, vascular malformation, or focal abnormality in the SMA or KYUNG t erritory. Wiliam Patino MD on January 30, 2017 at 13:54 Board Certified Radiologist. This report was verified electronically.
--- NOTE | 2017-01-30 15:25 | EKG ---
Date Performed: 01/29/2017 Time Performed: 20:40:46 PTAGE: 56 years EKG: SINUS TACHYCARDIA MODERATE ST DEPRESSION When compared to previous tracing, patient has dev eloped an Increase in the nonspecific ST segment changes. Clinical coooolation advised. ABNORMAL ECG PREVIOUS TRACING : 08/27/2006 DOCTOR: Tatum Rene Interpretating Date/Time 01/30/2017 15:25:01
[2017-01-30] MEDS ORDERED: ICU - MAGNESIUM SULFATE 2 GM/NS 100 ML IV PRN ×2 (18:30)
[2017-01-30] MEDS ORDERED: ICU - SODIUM PHOSPHATE 30 MMOL/NS 250 ML IV PRN ×2 (18:30)
[2017-01-30] MEDS ORDERED: ICU - POTASSIUM PHOSPHATE 30 MMOL/NS 250 ML IV PRN ×2 (18:30)
[2017-01-30] MEDS ORDERED: POTASSIUM CHLORIDE 25 MEQ EFFERVESCENT TAB PO PRN (18:30)
[2017-01-30] MEDS ORDERED: ICU - CALL ORDERING PHYSICIAN PRN (18:30)
[2017-01-30] MEDS ORDERED: ICU - POTASSIUM PHOSPHATE MONOBASIC 500 MG TAB PO PRN (18:30)
[2017-01-30] MEDS ORDERED: ICU - POTASSIUM CHLORIDE/AQUEOUS SOLN 20 MEQ/100 ML IVPB IV PRN (18:30)
[2017-01-30] MEDS ORDERED: ICU - POTASSIUM CHLORIDE/AQUEOUS SOLN 40 MEQ/100 ML IVPB IV PRN (18:30)
[2017-01-30] MEDS ORDERED: ICU - MAGNESIUM OXIDE 400 MG TAB PO PRN (18:30)
[2017-01-30] MEDS ORDERED: ICU - D/C ICU ELECTROLYTE ORDERS PRN (18:30)
[2017-01-30] MEDS ORDERED: ICU - MAGNESIUM SULFATE 4 GM/NS 100 ML IV PRN ×2 (18:30)
[2017-01-30 21:19] LABS: HEMATOCRIT 24.2 % (39.0-51.0); REVIEW FLAG FINAL
[2017-01-30 22:10] LABS: AUTOMATED NEUTROPHIL # 15.3 TH/MM3 (1.8-7.7); BASOPHIL % 0.2 % (0.0-2.0); LYMPH % 10.8 % (9.0-44.0); LYMPHOCYTE # 2.1 TH/MM3 (1.0-4.8); MEAN CELL VOLUME 86.6 FL (80.0-100.0); MEAN CORPUSCULAR HEMOGLOBIN 29.4 PG (27.0-34.0); PLATELET COUNT 137 TH/MM3 (150-450); RED BLOOD COUNT 2.77 MIL/MM3 (4.50-5.90); WHITE BLOOD COUNT 19.8 TH/MM3 (4.0-11.0)
[2017-01-30 22:13] LABS: HEMO FLAGS AUTO DIFF
[2017-01-30 23:17] LABS: BANDS 4 % (0-6); METAMYELOCYTES 1 % (0-1); POLYS (SEG NEUTROPHILS) 76 % (16-70); WBC DIFF SAMPLE 100
[2017-01-30 23:19] LABS: PLATELET ESTIMATE SMEAR LOW (NORMAL); PLATELET MORPHOLOGY NORMAL (NORMAL); SCAN/DIFF FINAL DIFF MANUAL
[2017-01-31] VITALS (15 sets, daily range): BP systolic 99–146; BP diastolic 56–76; PULSE 68–84; RESP 14–32; TEMP 97.9–99; O2SAT 95–100
[2017-01-31 08:17] LABS: AUTOMATED NEUTROPHIL # 12.5 TH/MM3 (1.8-7.7); BASOPHIL # 0.1 TH/MM3 (0-0.2); BASOPHIL % 0.5 % (0.0-2.0); EOSINOPHIL % 0.3 % (0.0-4.0); HEMATOCRIT 21.6 % (39.0-51.0); HEMO FLAGS DIFF FINAL; LYMPH % 16.1 % (9.0-44.0); LYMPHOCYTE # 2.8 TH/MM3 (1.0-4.8); MEAN CELL VOLUME 88.8 FL (80.0-100.0); MEAN CORPUSCULAR HEMOGLOBIN 30.3 PG (27.0-34.0); MEAN CORPUSCULAR HGB CONC 34.1 % (32.0-36.0); MONO % 10.7 % (0.0-8.0); NEUT % 72.4 % (16.0-70.0); PLATELET COUNT 136 TH/MM3 (150-450); RED BLOOD COUNT 2.43 MIL/MM3 (4.50-5.90); RED CELL DISTRIBUTION WIDTH 19.4 % (11.6-17.2); WHITE BLOOD COUNT 17.2 TH/MM3 (4.0-11.0)
[2017-01-31] MEDS: SODIUM CHLOR 0.9% 1000 ML INJ 1,000 ML IV SCH ×2 (09:00→18:00)
[2017-01-31] MEDS: INSULIN ASPART SUPPLEMENTAL SCALE SQ SCH ×4 (09:00→21:00)
[2017-01-31] MEDS: SODIUM CHLORIDE 0.9% FLUSH 10 ML FLUSH IV FLUSH SCH ×2 (09:00→20:07)
[2017-01-31] MEDS: ATENOLOL/CHLORTHALIDONE 50/25 TAB PO SCH (09:00)
[2017-01-31] MEDS: DOCUSATE SODIUM 50 MG/SENNA 8.6 MG TAB PO SCH ×2 (09:00→20:06)
--- NOTE | 2017-01-31 10:43 | HHI.CCPN ---
Subjective Remarks/Hospital Course 56 year old male presents to the [facility] emergency department with a history of GI bleeding that began earlier today. He has had bright red blood per rectum that began this morning was occurring approximately every 30 minutes. He also began to have lightheaded sensation. He has had his first colonoscopy on Sunday by and he had multiple polyps removed. He went to the [place] emergency department earlier today after being told by the GI doctor's nurse to do. He was given IV fluids and initial blood work revealed a hemoglobin of 11.8. He was offered admission for observation and at that time preferred to go home. Since then every time he sits up he gets lightheaded. He also has passed out and has an abrasion next to the left eye on the left samaritan. He denies having any chest pain, chest pressure, or shortness of breath. The patient was brought in by ambulance services and in the emergency department was noted to be tachycardic, however he was not hypotensive. His initial blood pressure on their arrival was 120/81, pulse 131. The patient had IV access obtained prior to arrival was given a liter of normal saline IV fluids. He reports that his bloody stools have decreased to approximately once every 2 hours. The GI services were notified by ED attending with recommendations of nuclear medicine bleeding scan which shows active bleeding from the distal colon. IR physician weight control lecturer was contacted, case discussed and scheduled for IR intervention at 7:30 AM . SUBJ 01/30: Patient was seen after abdominal angiography, official report is pending apparently they did not find a source of bleeding. Rectal bag in place with dark blood. Patient remains tachycardic at 130s. Systolic blood pressures in 120s. Repeat hemoglobin is pending at this time. GI planning on sigmoidoscopy afternoon or tomorrow a.m. 01/31: Clinically more stable less tachycardic. Normotensive. Hemoglobin 7.3 today additional 1 unit of blood ordered. I Personally spoke to GI-we'll evaluate today, to decide upon sigmoidoscopy Objective Vital Signs Date Time Temp Pulse Resp B/P (MAP) Pulse Ox O2 Delivery O2 Flow Rate FiO2 01/31/17 07:00 77 01/31/17 04:00 98.4 21 100/61 (74) 95 01/30/17 00:20 Nasal Cannula 2.00 Intake and Output 01/31/17 01/31/17 02/01/17 08:00 16:00 00:00 Intake Total 0 ml Output Total 750 ml Balance -750 ml Result Diagram: 01/31/17 0739 01/30/17 0535 Objective Remarks GENERAL: Well-nourished, well-developed patient. Lying in bed no acute discomfort SKIN: Warm and dry. HEAD: Normocephalic. EYES: No scleral icterus. No injection or drainage. NECK: Supple, trachea midline. No JVD or lymphadenopathy. CARDIOVASCULAR: Regular rate and rhythm without murmurs, gallops, or rubs. RESPIRATORY: Breath sounds equal bilaterally. No accessory muscle use. GASTROINTESTINAL: Abdomen soft, non-tender, nondistended. Rectal bag with dark old appearing blood MUSCULOSKELETAL: No cyanosis, or edema. BACK: Nontender without obvious deformity. NEURO: AOX 3. Normal motor strength. Sensation preserved A/P Assessment and Plan GI bleed - Active bleeding per nuclear medicine scan from distal colon - Abdominal angiogram 01/30 failed to identify bleeding source - GI following; possible sigmoidoscopy today. D/W GI - PRBC 1U ordered for Hb 7.3. Continue IV Protonix. Platelets above 200, PT/INR within normal limits - Patient takes atenolol chlorthalidone at home. Resumed due to tachycardia Anemia - Secondary to GIB - Transfuse to keep hemoglobin above 8 History of asthma - No exacerbation - DuoNeb's when necessary DVT GI prophylaxis - Teds SCDs - No pharmacological DVT prophylaxis due to active GI bleed - Protonix IV twice a day Critical Care: Level 3. Continue ICU care until Hb stable Manoj Tobin MD Jan 31, 2017 10:43
--- NOTE | 2017-01-31 11:05 | HHI.GIFU ---
GI Follow-up Note Consult Follow-up Subjective: Patient laying in bed comfortably. feeling better. old blood noted in rectal bag but hgb dropped to 7.3. No CP/SOB/ABD pain Objective: PHYSICAL EXAMINATION: Vitals signs stable No fever CHEST: Chest is clear to auscultation and percussion. CARDIAC: Regular rate and rhythm with no murmur gallop or rubs. ABDOMEN: Soft, nondistended, nontender; no hepatosplenomegaly; bowel sounds are present in all four quadrants. EXTREMITIES: No clubbing, cyanosis, or edema. SKIN: no jaundice. MERCHANDISE EXECUTIVE; alert and oriented times three. Available Data (labs, X- Rays, Procedues) : 7.3 Hgb ASSESSMENT/PLAN: 1. lower GI bleeding-old blood noted but hgb dropped 2. anemia 3. recent polypectomy PLAN: 1. sigmoidoscopy today (or tomorrow depending on schedule). all risks d/w with pt including risk of bleeding, infection, perforation and It was a pleasure seeing Abilio Pineda. Thank you for this consult. Entered by: Jg Campos MD Jan 31, 2017 11:05
[2017-01-31] MEDS: PANTOPRAZOLE SODIUM 40 MG VIAL IV PUSH SCH (11:39)
[2017-01-31] MEDS ORDERED: PROPOFOL 200 MG/20 ML AMP IV ONE (12:00)
[2017-01-31] MEDS ORDERED: CALCIUM GLUCONATE INJ 1 GM in DEXTROSE 5% IN WATER 100ML INJ 100 ML IV ONE ×2 (12:00)
--- NOTE | 2017-01-31 17:04 | GIPROC ---
[facility] [address] [facility]. [facility], [address] FLEXIBLE SIGMOIDOSCOPY PROCEDURE REPORT EXAM DATE: 01/31/2017 PATIENT NAME: Abilio Pineda MR #: [id number] BIRTHDATE: 1960 ORDER #: [id number] ATTENDING: Jg Hodge MD SPORTS TRAINER: Reanna Scott and David Neil STATUS: inpatient INDICATIONS: The patient is a 56 yr old male here for a flexible sigmoidoscopy due to hematochezia and Positive bleeding scan-distal colon PROCEDURE PERFORMED: Flexible Sigmoidoscopy with control of bleeding MEDICATIONS: None and Per Anesthesia. ESTIMATED BLOOD LOSS: None CONSENT: The patient understands the risks and benefits of the procedure and understands that these risks include, but are not limited to: sedation, allergic reaction, infection, perforation and/or bleeding. Alternative means of evaluation and treatment include, among others: physical exam, x-rays, and/or surgical intervention. The patient elects to proceed with this endoscopic procedure. medical equipment was checked for proper function. Hand hygiene and appropriate measures for infection prevention was taken. After the risks, benefits and alternatives of the procedure were thoroughly explained, Informed consent was verified, confirmed and timeout was successfully executed by the treatment team. A digital rectal exam revealed no abnormalities of the rectum The Pentax EG-[id number] endoscope was introduced through the anus and advanced to the distal sigmoid colon-could not be advanced further because of old blood. The prep was suboptimal (unprepped). The instrument was then slowly withdrawn as the colon was fully examined. COLON FINDINGS: 8 mm deep ulcer was noted at the rectosigmoid junction. At the base was visable vessel. It would ooze when washed. 4 clips were applied with closure of the ulcer defect. bleeding ceased. Small internal hemorrhoids were found. Retroflexion was not performed The scope was then completely withdrawn from the patient and the procedure terminated. ADVERSE EVENTS: There were no complications. IMPRESSIONS: 1. 8 mm deep ulcer was noted at the rectosigmoid junction. At the base was visable vessel. It would ooze when washed. 4 clips were applied with closure of the ulcer defect. bleeding ceased 2. Small internal hemorrhoids 3. Retroflexion was not performed 4. Revealed no abnormalities of the rectum RECOMMENDATIONS: Watch for GI bleeding (patient had other polyps removed) RECALL: NONE Jg Hodge MD eSigned: Jg Hodge MD 01/31/2017 5:04 PM cc: PATIENT NAME: Abilio Pineda MR#: [id number]
[2017-01-31] MEDS ORDERED: NALOXONE HCL 0.4 MG/ML AMP IV PUSH PRN (17:45)
[2017-01-31] MEDS ORDERED: FLUMAZENIL 0.5 MG/5 ML VIAL IV PUSH PRN ×2 (17:45)
[2017-01-31 18:43] LABS: HEMATOCRIT 23.6 % (39.0-51.0); MEAN CELL VOLUME 87.9 FL (80.0-100.0); MEAN CORPUSCULAR HEMOGLOBIN 30.7 PG (27.0-34.0); PLATELET COUNT 130 TH/MM3 (150-450); RED BLOOD COUNT 2.68 MIL/MM3 (4.50-5.90); RED CELL DISTRIBUTION WIDTH 17.7 % (11.6-17.2); REVIEW FLAG FINAL; WHITE BLOOD COUNT 15.7 TH/MM3 (4.0-11.0)
[2017-01-31] MEDS: CHLORHEXIDINE GLUCONATE 2 % 1 PACK (2 CLOTHS) TOP SCH (19:42)
[2017-02-01] VITALS (8 sets, daily range): BP systolic 113–143; BP diastolic 67–79; PULSE 70–78; RESP 15–21; TEMP 98.6–99.9; O2SAT 96–99
[2017-02-01] MEDS: PANTOPRAZOLE SODIUM 40 MG VIAL IV PUSH SCH ×3 (00:07→23:36)
[2017-02-01] MEDS: SODIUM CHLOR 0.9% 1000 ML INJ 1,000 ML IV SCH ×3 (04:15→20:52)
[2017-02-01 05:51] LABS: AUTOMATED NEUTROPHIL # 9.8 TH/MM3 (1.8-7.7); BASOPHIL # 0.1 TH/MM3 (0-0.2); BASOPHIL % 0.5 % (0.0-2.0); EOSINOPHIL # 0.1 TH/MM3 (0-0.4); HEMATOCRIT 22.8 % (39.0-51.0); LYMPH % 18.5 % (9.0-44.0); LYMPHOCYTE # 2.6 TH/MM3 (1.0-4.8); MEAN CELL VOLUME 89.6 FL (80.0-100.0); MEAN CORPUSCULAR HEMOGLOBIN 30.3 PG (27.0-34.0); MEAN CORPUSCULAR HGB CONC 33.8 % (32.0-36.0); MONO % 10.2 % (0.0-8.0); NEUT % 69.8 % (16.0-70.0); PLATELET COUNT 148 TH/MM3 (150-450); RED BLOOD COUNT 2.55 MIL/MM3 (4.50-5.90); RED CELL DISTRIBUTION WIDTH 17.8 % (11.6-17.2)
[2017-02-01 05:55] LABS: HEMO FLAGS AUTO DIFF
[2017-02-01 06:06] LABS: BICARBONATE 27.4 MEQ/L (21.0-32.0); POTASSIUM 3.4 MEQ/L (3.5-5.1)
[2017-02-01 06:08] LABS: CALCIUM-PROTEIN CORRECTED 8.4 MG/DL (8.5-10.1); TOTAL BILIRUBIN ADULT 0.3 MG/DL (0.2-1.0)
[2017-02-01 07:20] LABS: BASOPHILS 1 % (0-2); EOSINOPHILS 1 % (0-4); MYELOCYTES 1 % (0-0); NEUTROPHIL # MANUAL DIFF 11.3 TH/MM3 (1.8-7.7); POLYS (SEG NEUTROPHILS) 80 % (16-70); WBC DIFF SAMPLE 100
[2017-02-01 07:21] LABS: PLATELET ESTIMATE SMEAR LOW (NORMAL); PLATELET MORPHOLOGY NORMAL (NORMAL)
[2017-02-01 07:22] LABS: SCAN/DIFF FINAL DIFF MANUAL
[2017-02-01] MEDS: INSULIN ASPART SUPPLEMENTAL SCALE SQ SCH ×4 (08:00→20:45)
--- NOTE | 2017-02-01 08:15 | HHI.CCPN ---
Subjective Remarks/Hospital Course 56 year old male presents to the [facility] emergency department with a history of GI bleeding that began earlier today. He has had bright red blood per rectum that began this morning was occurring approximately every 30 minutes. He also began to have lightheaded sensation. He has had his first colonoscopy on Sunday by and he had multiple polyps removed. He went to the [place] emergency department earlier today after being told by the GI doctor's nurse to do. He was given IV fluids and initial blood work revealed a hemoglobin of 11.8. He was offered admission for observation and at that time preferred to go home. Since then every time he sits up he gets lightheaded. He also has passed out and has an abrasion next to the left eye on the left methodist. He denies having any chest pain, chest pressure, or shortness of breath. The patient was brought in by ambulance services and in the emergency department was noted to be tachycardic, however he was not hypotensive. His initial blood pressure on their arrival was 120/81, pulse 131. The patient had IV access obtained prior to arrival was given a liter of normal saline IV fluids. He reports that his bloody stools have decreased to approximately once every 2 hours. The GI services were notified by ED attending with recommendations of nuclear medicine bleeding scan which shows active bleeding from the distal colon. IR physician wall covering contractor was contacted, case discussed and scheduled for IR intervention at 7:30 AM . SUBJ 01/30: Patient was seen after abdominal angiography, official report is pending apparently they did not find a source of bleeding. Rectal bag in place with dark blood. Patient remains tachycardic at 130s. Systolic blood pressures in 120s. Repeat hemoglobin is pending at this time. GI planning on sigmoidoscopy afternoon or tomorrow a.m. 01/31: Clinically more stable less tachycardic. Normotensive. Hemoglobin 7.3 today additional 1 unit of blood ordered. I Personally spoke to GI-we'll evaluate today, to decide upon sigmoidoscopy 02/01: No obvious rectal bleeding, but hemoglobin dropped from 8.3 to 7.7. Patient underwent sigmoidoscopy yesterday-showed 8 mm deep ulcer at the rectosigmoid junction. blood vessel at base, oozing when washed, 4 clips were applied with closure of the ulcer defect and bleeding ceased per GI note Objective Vital Signs Date Time Temp Pulse Resp B/P (MAP) Pulse Ox O2 Delivery O2 Flow Rate FiO2 02/01/17 04:00 99.0 78 18 126/71 (89) 96 01/30/17 00:20 Nasal Cannula 2.00 Intake and Output 02/01/17 02/01/17 02/02/17 08:00 16:00 00:00 Intake Total 2251 ml Output Total 500 ml Balance 1751 ml Result Diagram: 02/01/1744702/01/17447 Objective Remarks GENERAL: Well-nourished, well-developed patient. Lying in bed no acute discomfort SKIN: Warm and dry. HEAD: Normocephalic. EYES: No scleral icterus. No injection or drainage. NECK: Supple, trachea midline. No JVD or lymphadenopathy. CARDIOVASCULAR: Regular rate and rhythm without murmurs, gallops, or rubs. RESPIRATORY: Breath sounds equal bilaterally. No accessory muscle use. GASTROINTESTINAL: Abdomen soft, non-tender, nondistended. MUSCULOSKELETAL: No cyanosis, or edema. BACK: Nontender without obvious deformity. NEURO: AOX 3. Normal motor strength. Sensation preserved A/P Assessment and Plan GI bleed - Active bleeding per nuclear medicine scan from distal colon - Abdominal angiogram 01/30 failed to identify bleeding source - Sigmoidoscopy 01/31-8 mm deep ulcer at the rectosigmoid junction. blood vessel at base, oozing when washed, 4 clips were applied, with closure of the ulcer defect and bleeding ceased per GI note - Hb 7.7 today down from 8.3. Repeat Hb at 12 noon. No transfusion at this time - Continue IV Protonix. Platelets above 200, PT/INR within normal limits - Patient takes atenolol chlorthalidone at home. Resumed due to tachycardia Anemia - Secondary to GIB - Transfuse to keep hemoglobin above 8, as clinically indicated History of asthma - No exacerbation - DuoNeb's when necessary DVT GI prophylaxis - Teds SCDs - No pharmacological DVT prophylaxis due to active GI bleed - Protonix IV twice a day Level 3. Transfer to Med Surg with Tele. Hospitalist consulted to assume care in am 02/02/17 Manoj Tobin MD Feb 01, 2017 08:15
[2017-02-01] MEDS: SODIUM CHLORIDE 0.9% FLUSH 10 ML FLUSH IV FLUSH SCH ×2 (08:27→20:51)
[2017-02-01] MEDS: ATENOLOL/CHLORTHALIDONE 50/25 TAB PO SCH (08:27)
[2017-02-01] MEDS: DOCUSATE SODIUM 50 MG/SENNA 8.6 MG TAB PO SCH ×2 (08:27→20:51)
--- NOTE | 2017-02-01 09:02 | HHI.GIFU ---
GI Follow-up Note Consult Follow-up Subjective: Patient laying in bed comfortably. No BM's since procedure (old blood noted on flex sig) Objective: PHYSICAL EXAMINATION: Vitals signs stable No fever CHEST: Chest is clear to auscultation and percussion. CARDIAC: Regular rate and rhythm with no murmur gallop or rubs. ABDOMEN: Soft, nondistended, nontender; no hepatosplenomegaly; bowel sounds are present in all four quadrants. EXTREMITIES: No clubbing, cyanosis, or edema. SKIN: no jaundice. EMAIL MANAGER: alert and oriented times three. Available Data (labs, X- Rays, Procedues) : Hgb 8.2--7.7 ASSESSMENT/PLAN: 1. lower GI bleeding-old blood noted yesterday. Slight drop in hgb 2. anemia 3. recent polypectomy--ulcer with a vessel was noted at rectosigmoid area-- Clipped. PLAN: 1. Trial of clear liquids 2. watch for rebleeding-pt had multiple polypectomies--must worry about these areas also (unable to see all sites because of stool/old blood) It was a pleasure seeing Abilio Pineda. Thank you for this consult. Entered by: Jg Campos MD Feb 01, 2017 09:02
[2017-02-02] VITALS (9 sets, daily range): BP systolic 116–146; BP diastolic 65–79; PULSE 69–84; RESP 19–20; TEMP 98.2–99.2; O2SAT 96–98
[2017-02-02] MEDS: CHLORHEXIDINE GLUCONATE 2 % 1 PACK (2 CLOTHS) TOP SCH ×2 (02:35→22:03)
[2017-02-02 08:29] LABS: AUTOMATED NEUTROPHIL # 10.2 TH/MM3 (1.8-7.7); BASOPHIL % 0.2 % (0.0-2.0); EOSINOPHIL # 0.1 TH/MM3 (0-0.4); HEMO FLAGS DIFF FINAL; LYMPH % 14.9 % (9.0-44.0); LYMPHOCYTE # 2.1 TH/MM3 (1.0-4.8); MEAN CELL VOLUME 90.1 FL (80.0-100.0); MEAN CORPUSCULAR HEMOGLOBIN 30.3 PG (27.0-34.0); MEAN CORPUSCULAR HGB CONC 33.7 % (32.0-36.0); MONO % 9.3 % (0.0-8.0); NEUT % 74.6 % (16.0-70.0); PLATELET COUNT 208 TH/MM3 (150-450); RED BLOOD COUNT 2.66 MIL/MM3 (4.50-5.90); RED CELL DISTRIBUTION WIDTH 17.5 % (11.6-17.2); WHITE BLOOD COUNT 13.8 TH/MM3 (4.0-11.0)
[2017-02-02] MEDS: SODIUM CHLORIDE 0.9% FLUSH 10 ML FLUSH IV FLUSH SCH ×2 (08:29→22:01)
[2017-02-02] MEDS: INSULIN ASPART SUPPLEMENTAL SCALE SQ SCH ×4 (08:29→21:00)
[2017-02-02] MEDS: DOCUSATE SODIUM 50 MG/SENNA 8.6 MG TAB PO SCH ×2 (08:30→21:00)
[2017-02-02] MEDS: ATENOLOL/CHLORTHALIDONE 50/25 TAB PO SCH (08:30)
[2017-02-02 09:04] LABS: ALKALINE PHOSPHATASE 26 U/L (45-117); ALT (GPT) 25 U/L (12-78); ANION GAP 8 MEQ/L (5-15); AST (GOT) 20 U/L (15-37); BICARBONATE 27.9 MEQ/L (21.0-32.0); BLOOD UREA NITROGEN 6 MG/DL (7-18); CHLORIDE 105 MEQ/L (98-107); GLOMERULAR FILTRATION RATE 122 ML/MIN (>89); MAGNESIUM 2.2 MG/DL (1.5-2.5); POTASSIUM 3.3 MEQ/L (3.5-5.1); SODIUM (NA) 141 MEQ/L (136-145); TOTAL BILIRUBIN ADULT 0.4 MG/DL (0.2-1.0)
--- NOTE | 2017-02-02 09:38 | HHI.GIFU ---
GI Follow-up Note Consult Follow-up Subjective: Patient laying in bed comfortably. no BM's or bleeding. wants to eat. no N/V/abd pain Objective: PHYSICAL EXAMINATION: 146/79-79-19 No fever CHEST: Chest is clear to auscultation and percussion.. ABDOMEN: Soft, nondistended, nontender; no hepatosplenomegaly; bowel sounds are present in all four quadrants. EXTREMITIES: No clubbing, cyanosis, or edema. SKIN: no jaundice. FAMILY PROTECTION SPECIALIST: alert and oriented times three. Available Data (labs, X- Rays, Procedues) : Hgb 8.4-7.4-8.1 ASSESSMENT/PLAN: 1. lower GI bleeding-none today. Hgb stable 2. anemia 3. recent polypectomy--ulcer with a vessel was noted at rectosigmoid area-- Clipped. PLAN: 1. Trial of a soft diet 2. watch for rebleeding-pt had multiple polypectomies--must worry about these areas also (unable to see all sites because of stool/old blood) It was a pleasure seeing Abilio Pineda. Thank you for this consult. Entered by: Jg Campos MD Feb 02, 2017 09:38
--- NOTE | 2017-02-02 10:29 | HHI.PR ---
Subjective Remarks feeling better hungry no reported rectal bleeding Objective Vitals Vital Signs Date Time Temp Pulse Resp B/P (MAP) Pulse Ox O2 Delivery O2 Flow Rate FiO2 02/02/17 08:04 82 02/02/17 08:04 98.2 79 19 146/79 (101) 97 02/02/17 04:00 98.6 82 20 143/77 (99) 98 02/02/17 00:00 98.7 77 20 126/65 (85) 96 02/02/17 00:00 75 02/01/17 20:00 99.0 72 20 117/79 (92) 96 02/01/17 20:00 73 02/01/17 16:00 99.5 71 16 124/71 (88) 98 02/01/17 15:00 70 02/01/17 12:00 99.0 70 21 113/70 (84) 99 I/O 02/01/17 02/01/17 02/01/17 02/02/17 02/02/17 02/02/17 07:00 15:00 23:00 07:00 15:00 23:00 Intake Total 2251 ml 504 ml Output Total 500 ml 700 ml Balance 1751 ml -196 ml Intake Oral 0 ml IV Total 2251 ml 504 ml Output Urine Total 500 ml 700 ml Stool Total 0 ml Result Diagram: 02/02/17 0748 02/02/17 0748 Imaging Last Impressions Abdomen Arteriogram 01/30/17 0000 Signed Impressions: Service Date/Time: Monday, January 30, 2017 08:12 - CONCLUSION: 1. No evidence for active hemorrhage, vascular malformation, or focal abnormality in the SMA or KYUNG territory. Wiliam Patino MD GI Bleed Scan Nuclear Medicine 01/29/17 0000 Signed Impressions: Service Date/Time: Sunday, January 29, 2017 22:49 - CONCLUSION: Evidence of active GI bleeding in the distal colon. Gabino Peter MD Objective Remarks awake and alert oriented x 3 lungs clear regular rhythm abdomen soft extrmeities no edema Procedures 02/01 colonoscopy- clipping A/P Assessment and Plan 56 years old male Lower GI bleed S/P recent colonoscopy with polyps removed as OP - Active bleeding per nuclear medicine scan from distal colon - Abdominal angiogram 01/30 failed to identify bleeding source - Sigmoidoscopy 12/6-8 mm deep ulcer at the rectosigmoid junction. blood vessel at base, oozing when washed, 4 clips were applied, with closure of the ulcer defect and bleeding ceased per GI note - H and H stable - Continue IV Protonix. Platelets above 200, PT/INR within normal limits - continue on atenolol chlorthalidone -- - diet advance to day -if stable overnight- DC in am Acute Anemia- due to acute blood loss due GI bleeding - H and H stable, no further reported bleeding - Secondary to GIB - Transfuse to keep hemoglobin above 8, as clinically indicated History of asthma - No exacerbation - DuoNeb's when necessary DVT GI prophylaxis - Teds SCDs - No pharmacological DVT prophylaxis due to active GI bleed - Protonix IV twice a day Hypokalemia - replace with po KCL - BMP in am Hypertension - monitor - continue current meds DM type 2 - monitor. good readings. continue meds Patient up and ambulating Mushtaq Smith MD Feb 02, 2017 10:29
[2017-02-02] MEDS: PANTOPRAZOLE SODIUM 40 MG VIAL IV PUSH SCH (11:53)
[2017-02-02] MEDS: POTASSIUM CHLORIDE 25 MEQ EFFERVESCENT TAB PO SCH ×2 (11:53→22:01)
[2017-02-03] VITALS: BP 132/74; PULSE 78; PULSE 84; RESP 16; TEMP 98.2; O2SAT 98
[2017-02-03 04:00] VITALS: BP 129/85; PULSE 78; RESP 16; TEMP 98.7; O2SAT 98
[2017-02-03 07:07] LABS: BICARBONATE 22.8 MEQ/L (21.0-32.0); POTASSIUM 3.8 MEQ/L (3.5-5.1)
[2017-02-03] MEDS: INSULIN ASPART SUPPLEMENTAL SCALE SQ SCH (07:55)
[2017-02-03 07:58] VITALS: PULSE 95
[2017-02-03 08:04] VITALS: BP 140/77; PULSE 85; RESP 20; TEMP 98.7; O2SAT 96
[2017-02-03] MEDS: SODIUM CHLORIDE 0.9% FLUSH 10 ML FLUSH IV FLUSH SCH (08:04)
[2017-02-03] MEDS: POTASSIUM CHLORIDE 25 MEQ EFFERVESCENT TAB PO SCH (08:04)
[2017-02-03] MEDS: ATENOLOL/CHLORTHALIDONE 50/25 TAB PO SCH (08:04)
[2017-02-03] MEDS: DOCUSATE SODIUM 50 MG/SENNA 8.6 MG TAB PO SCH (08:04)
--- NOTE | 2017-02-03 08:53 | HHI.PR ---
Subjective Remarks no complains tolerated po, no nausea or vomiting, no abdominal pain stools formed, brown Objective Vitals Vital Signs Date Time Temp Pulse Resp B/P (MAP) Pulse Ox O2 Delivery O2 Flow Rate FiO2 02/03/17 08:04 98.7 85 20 140/77 (98) 96 02/03/17 08:00 96 Room Air 02/03/17 04:00 98.7 78 16 129/85 (100) 98 02/03/17 00:00 84 02/03/17 00:00 98.2 78 16 132/74 (93) 98 02/02/17 20:00 98.5 84 20 127/76 (93) 97 02/02/17 20:00 84 02/02/17 20:00 98 Room Air 02/02/17 16:25 73 02/02/17 16:03 99.2 72 20 116/73 (87) 98 02/02/17 16:00 98 Room Air 02/02/17 12:06 80 02/02/17 12:03 98.6 69 20 122/69 (86) 98 02/02/17 12:00 98 Room Air 02/02/17 10:26 97 21 I/O 02/02/17 02/02/17 02/02/17 02/03/17 02/03/17 02/03/17 07:00 15:00 23:00 07:00 15:00 23:00 Intake Total 189 ml 480 ml 580 ml Balance 189 ml 480 ml 580 ml Intake Oral 480 ml 580 ml IV Total 189 ml # Voids 4 2 # Bowel Movements 1 2 1 Result Diagram: 02/02/17 0748 02/03/17 0525 Imaging Last Impressions Abdomen Arteriogram 01/30/17 0000 Signed Impressions: Service Date/Time: Monday, January 30, 2017 08:12 - CONCLUSION: 1. No evidence for active hemorrhage, vascular malformation, or focal abnormality in the SMA or KYUNG territory. Wiliam Patino MD GI Bleed Scan Nuclear Medicine 01/29/17 0000 Signed Impressions: Service Date/Time: Sunday, January 29, 2017 22:49 - CONCLUSION: Evidence of active GI bleeding in the distal colon. Gabino Peter MD Objective Remarks awake and alert oriented x 3 lungs clear regular rhythm abdomen soft extremities no edema Procedures 02/01 colonoscopy- clipping A/P Assessment and Plan 56 years old male Lower GI bleed S/P recent colonoscopy with polyps removed as OP - Active bleeding per nuclear medicine scan from distal colon - Abdominal angiogram 01/30 failed to identify bleeding source - Sigmoidoscopy 01/31-8 mm deep ulcer at the rectosigmoid junction. blood vessel at base, oozing when washed, 4 clips were applied, with closure of the ulcer defect and bleeding ceased per GI note - H and H stable - on Protonix. Platelets above 200, PT/INR within normal limits - continue on atenolol chlorthalidone -- -tolerated diet DC home today Acute Anemia- to due acute GI blood loss - H and H stable, no further reported bleeding - Secondary to GIB -H and H stab;e History of asthma - No exacerbation - DuoNeb's when necessary DVT GI prophylaxis - Teds SCDs - No pharmacological DVT prophylaxis due to active GI bleed Hypokalemia- corrected -advise to take banana daily - monitor as OP- as patient on chlorthalidone through PCP DM type 2- continue meds Hypertension- continue meds Patient up and ambulating DC home today FF up with PCP- Dr. Shelley next week FF up with GI- Dr. Ornelas group next weel d/w with patient and - they will call for appt Advise to return to ER if hematochezia, melena recurrs Mushtaq Smith MD Feb 03, 2017 08:53
[2017-02-03] MEDS ORDERED: PANTOPRAZOLE SOD 40 MG DELAYED RELEASE TAB PO SCH (09:00)
[2017-02-03] MEDS ORDERED: PANT40TA3 PO (09:05)
--- NOTE | 2017-02-03 09:06 | HHI.DS ---
Discharge Summary Admission Date Jan 29, 2017 at 21:48 Discharge Date: Feb 03, 2017 Admitting Diagnosis GI Bleed (1) Acute anemia due to acute GI blood loss Diagnosis: Principal (2) Lower GI bleeding ICD Code: K92.2 - Gastrointestinal hemorrhage, unspecified (3) History of HAD Diagnosis: Secondary (4) Hypokalemia ICD Code: E87.6 - Hypokalemia Diagnosis: Secondary (5) DM type 2 (diabetes mellitus, type 2) ICD Code: E11.9 - Type 2 diabetes mellitus without complications Diagnosis: Secondary (6) HYpertesnion Diagnosis: Secondary Procedures 02/01 colonoscopy- clipping Brief History - From Admission 56 year old male presents to the [facility] emergency department with a history of GI bleeding that began earlier today. He has had bright red blood per rectum that began this morning was occurring approximately every 30 minutes. He also began to have lightheaded sensation. He has had his first colonoscopy on Sunday by and he had multiple polyps removed. He went to the [facility] emergency department earlier today after being told by the GI doctor's nurse to do. He was given IV fluids and initial blood work revealed a hemoglobin of 11.8. He was offered admission for observation and at that time preferred to go home. Since then every time he sits up he gets lightheaded. He also has passed out and has an abrasion next to the left eye on the left samaritan. He denies having any chest pain, chest pressure, or shortness of breath. The patient was brought in by ambulance services and in the emergency department was noted to be tachycardic, however he was not hypotensive. His initial blood pressure on their arrival was 120/81, pulse 131. The patient had IV access obtained prior to arrival was given a liter of normal saline IV fluids. He reports that his bloody stools have decreased to approximately once every 2 hours. The GI services were notified by ED attending with recommendations of nuclear medicine bleeding scan which shows active bleeding from the distal colon. IR physician outreach consultant was contacted, case discussed and scheduled for IR intervention at 7:30 AM . CBC/BMP: 02/02/17 0748 02/03/17 0525 Significant Findings Laboratory Tests Test 01/31/17 17:34 02/01/17 04:48 02/01/17 14:03 02/01/17 23:07 White Blood Count 15.7 TH/MM3 (4.0-11.0) 14.0 TH/MM3 (4.0-11.0) Red Blood Count 2.68 MIL/MM3 (4.50-5.90) 2.55 MIL/MM3 (4.50-5.90) Hemoglobin 8.2 GM/DL (13.0-17.0) 7.7 GM/DL (13.0-17.0) 8.4 GM/DL (13.0-17.0) 7.4 GM/DL (13.0-17.0) Hematocrit 23.6 % (39.0-51.0) 22.8 % (39.0-51.0) Red Cell Distribution Width 17.7 % (11.6-17.2) 17.8 % (11.6-17.2) Platelet Count 130 TH/MM3 (150-450) 148 TH/MM3 (150-450) Monocytes (%) (Auto) 10.2 % (0.0-8.0) Neutrophils # (Auto) 9.8 TH/MM3 (1.8-7.7) Monocytes # (Auto) 1.4 TH/MM3 (0-0.9) Neutrophils % (Manual) 80 % (16-70) Neutrophils # (Manual) 11.3 TH/MM3 (1.8-7.7) Myelocytes 1 % (0-0) Platelet Estimate LOW (NORMAL) Creatinine 0.46 MG/DL (0.60-1.30) Random Glucose 122 MG/DL (74-106) Total Protein 4.9 GM/DL (6.4-8.2) Albumin 2.6 GM/DL (3.4-5.0) Calcium Level 7.2 MG/DL (8.5-10.1) Alkaline Phosphatase 20 U/L (45-117) Aspartate Amino Transf (AST/SGOT) 13 U/L (15-37) Potassium Level 3.4 MEQ/L (3.5-5.1) Chloride Level 108 MEQ/L (98-107) Protein Corrected Calcium 8.4 MG/DL (8.5-10.1) Test 02/02/17 07:48 02/03/17 05:25 White Blood Count 13.8 TH/MM3 (4.0-11.0) Red Blood Count 2.66 MIL/MM3 (4.50-5.90) Hemoglobin 8.1 GM/DL (13.0-17.0) Hematocrit 24.0 % (39.0-51.0) Red Cell Distribution Width 17.5 % (11.6-17.2) Neutrophils (%) (Auto) 74.6 % (16.0-70.0) Monocytes (%) (Auto) 9.3 % (0.0-8.0) Neutrophils # (Auto) 10.2 TH/MM3 (1.8-7.7) Monocytes # (Auto) 1.3 TH/MM3 (0-0.9) Blood Urea Nitrogen 6 MG/DL (7-18) Random Glucose 129 MG/DL (74-106) Total Protein 5.8 GM/DL (6.4-8.2) Albumin 2.9 GM/DL (3.4-5.0) Calcium Level 8.0 MG/DL (8.5-10.1) Alkaline Phosphatase 26 U/L (45-117) Potassium Level 3.3 MEQ/L (3.5-5.1) Chloride Level 109 MEQ/L (98-107) Imaging Last Impressions Abdomen Arteriogram 01/30/17 0000 Signed Impressions: Service Date/Time: Monday, January 30, 2017 08:12 - CONCLUSION: 1. No evidence for active hemorrhage, vascular malformation, or focal abnormality in the SMA or [place]UNG territory. Wiliam Patino MD GI Bleed Scan Nuclear Medicine 01/29/17 0000 Signed Impressions: Service Date/Time: Sunday, January 29, 2017 22:49 - CONCLUSION: Evidence of active GI bleeding in the distal colon. Gabino Peter MD PE at Discharge awake and alert oriented x 3 lungs clear regular rhythm abdomen soft extremities no edema Pt update on day of discharge up and ambulating no further episodes of bleeding stools brown Hospital Course 56 years old male Lower GI bleed S/P recent colonoscopy with polyps removed as OP - Active bleeding per nuclear medicine scan from distal colon - Abdominal angiogram 01/30 failed to identify bleeding source - Sigmoidoscopy 01/31-8 mm deep ulcer at the rectosigmoid junction. blood vessel at base, oozing when washed, 4 clips were applied, with closure of the ulcer defect and bleeding ceased per GI note - H and H stable - on Protonix. Platelets above 200, PT/INR within normal limits - continue on atenolol chlorthalidone -- -tolerated diet DC home today Acute Anemia- secondary to GIB - H and H stable, no further reported bleeding -H and H stab;e History of asthma - No exacerbation - DuoNeb's when necessary DVT GI prophylaxis - Teds SCDs - No pharmacological DVT prophylaxis due to active GI bleed Hypokalemia- corrected -advise to take banana daily - monitor as OP- as patient on chlorthalidone through PCP HYpertension - advised patient to continue home meds -ff up with PCP Patient up and ambulating DC home today FF up with PCP- Dr. Shelley next week FF up with GI- Dr. Ornelas group next weel d/w with patient and - they will call for appt Advise to return to ER if hematochezia, melena recurrs Pt Condition on Discharge: Good Discharge Disposition: Discharge Home Discharge Time: <= 30 minutes Discharge Instructions DIET: Follow Instructions for: As Tolerated, No Restrictions, Heart Healthy Diet, Diabetic Diet Speech Therapy-Diet Recommends: Regular Activities you can perform: Weight Bearing as Baldomero Follow up Referrals: Gastroenterology - 1 Week with Rl Ornelas MD PCP Follow-up - 3-5 Days with Dony New Orders: BASIC METABOLIC PROF - 02/05/17 CBC NO DIFF - 02/05/17 FERRITIN - 02/05/17 IRON PROFILE - 02/05/17 New Medications: Pantoprazole (Pantoprazole) 40 Mg Tab 40 MG PO DAILY for GI for 30 Days, #30 TAB Continued Medications: Amlodipine (Amlodipine) 5 Mg Tab 5 MG PO DAILY for Blood Pressure Management, #30 TAB 0 Refills Atenolol-Chlorthalidone (Atenolol-Chlorthalidone) 50-25 Mg Tab 1 TAB PO DAILY for Blood Pressure Management, #30 TAB 0 Refills Losartan (Losartan) 100 Mg Tab 100 MG PO DAILY for Blood Pressure Management, #30 TAB 0 Refills Metformin (Metformin) 500 Mg Tab 500 MG PO BIDPC for Blood Sugar Management, #60 TAB 0 Refills Lacierda,Alfea M. MD Feb 03, 2017 09:06
== END 2017-02-03 09:54 | disposition home or self-care (01) | DRG 920 ==
LOC: NEPC 20:30 → NEDA 21:48 → N03A 01-30 01:18 → N04B 02-01 15:40
PROVIDERS: ADMIT Internal Medicine; ATTEND Internal Medicine
PROC: 30233N1 Transfusion of Nonautologous Red Blood Cells into Peripheral Vein, Percutaneous Approach (ICD-10-PCS; 2017-01-29)
PROC: 0W3P8ZZ Control Bleeding in Gastrointestinal Tract, Via Natural or Artificial Opening Endoscopic (ICD-10-PCS; principal; 2017-01-31 16:09)
DX: K91.840 Postprocedural hemorrhage of a digestive system organ or structure following a digestive system procedure (principal); K92.1 Melena; K63.3 Ulcer of intestine; D62 Acute posthemorrhagic anemia; I10 Essential (primary) hypertension; E11.9 Type 2 diabetes mellitus without complications; E87.6 Hypokalemia; J45.909 Unspecified asthma, uncomplicated; R00.0 Tachycardia, unspecified; R11.2 Nausea with vomiting, unspecified; M54.5 Low back pain; K64.8 Other hemorrhoids; S00.81XA Abrasion of other part of head, initial encounter; Z79.84 Long term (current) use of oral hypoglycemic drugs; Z86.010 Personal history of colon polyps; Z85.46 Personal history of malignant neoplasm of prostate; Y83.8 Other surgical procedures as the cause of abnormal reaction of the patient, or of later complication, without mention of misadventure at the time of the procedure; X58.XXXA Exposure to other specified factors, initial encounter
CPT/HCPCS: 36245; 36430; 75726; 75774; 76937; 78278; 80048; 80053; 82948; 83690; 83735; 84100; 85007; 85014; 85018; 85025; 85027; 85610; 86850; 86900; 86901; 86920; 87641; 93005; 96365; 96368; 96375; 99152; 99153; A9560; C1769; C1887; C1894; C9113; J0610; J1642; J1644; J1815; J2250; J2270; J2405; J3010; J7030; J7040; P9016; Q9967